=== PATIENT | male | born 1965 | race Caucasian/White ===

== ENCOUNTER 2018-02-27 21:15 | Emergency (ER) | payer OTHER ==
[~2018-02-27] VITALS: Ht 165.1 cm; Wt 108.2 kg
[~2018-02-27 21:15] MED LIST: ADVIL200 MG PO; MOTRIN600 MG PO; ZESTRIL10 MG PO
[2018-02-27 22:42] LABS: HEMATOCRIT 40.8 % (38.0-50.0); HEMOGLOBIN 14.5 G/DL (12.5-16.6); MCH 29.9 PG (29.0-34.0); MCHC 35.5 G/DL (30.0-36.0); MCV 84.1 FL (86-99); PLATELET COUNT 220 K/uL (156-360); RBC DIS.WIDTH-CV 12.5 % (11.8-14.6); RED BLOOD COUNT 4.85 M/uL (4.00-5.50); WHITE BLOOD COUNT 6.9 K/uL (4.1-10.2)
[2018-02-27 22:53] LABS: CHLORIDE 108 mEq/L (99-109); POTASSIUM 4.1 mEq/L (3.7-5.4); SODIUM 142 mEq/L (136-147)
[2018-02-27 22:55] LABS: GLUCOSE 96 mg/dL (70-99); TOTAL PROTEIN 7.1 g/dL (6.4-8.3)
[2018-02-27 22:57] LABS: TOTAL BILIRUBIN 0.2 mg/dL (0.0-1.0)
[2018-02-27 22:59] LABS: ALKALINE PHOSPHATASE 75 IU/L (3-129); GFR ESTIMATE (CALCULATED) > 59 mL/min/ (58.99-99999)
[2018-02-27 23:00] LABS: UREA NITROGEN (BUN) 16 mg/dL (9-23)
[2018-02-27 23:01] LABS: AST (GOT) 20 IU/L (2-34)
[2018-02-27 23:02] LABS: ALT (GPT) 33 IU/L (3-49); LIPASE 42 U/L (1.0-51.0)
[2018-02-27 23:05] LABS: TROP-I INTERPRETATION NEGATIVE; TROPONIN-I < 0.01 ng/mL (0.0-0.30)
[2018-02-28 00:30] VITALS: BP 128/87
[2018-02-28 01:01] LABS: TROP-I INTERPRETATION NEGATIVE; TROPONIN-I < 0.01 ng/mL (0.0-0.30)
== END 2018-02-28 01:06 | disposition home or self-care (01) ==
LOC: EME 21:15
PROVIDERS: Emergency Medicine
DX: R07.9 Chest pain, unspecified (principal); R94.31 Abnormal electrocardiogram [ECG] [EKG]; I10 Essential (primary) hypertension; E78.5 Hyperlipidemia, unspecified; G43.909 Migraine, unspecified, not intractable, without status migrainosus; Z82.49 Family history of ischemic heart disease and other diseases of the circulatory system
CPT/HCPCS: 71046; 80053; 83690; 84484; 85027; 93005; 99281; 99285

== ENCOUNTER 2018-05-08 13:47 | Emergency (ER) | payer OTHER ==
[~2018-05-08] VITALS: Ht 175.3 cm; Wt 106.9 kg
[2018-05-08 15:30] LABS: APPEARANCE CLEAR ((CLEAR)); BILIRUBIN NEGATIVE; BLOOD NEGATIVE; COLOR YELLOW ((YELLOW)); GLUCOSE (STRIP) NEGATIVE; KETONES NEGATIVE; LEUKOCYTES NEGATIVE; NITRITE NEGATIVE; PROTEIN (STRIP) NEGATIVE; SPECIFIC GRAVITY 1.031 (1.000-1.030); UCUL ADDED? NO; UROBILINOGEN 0.2 MG/DL (0.2-1.0)
[2018-05-08] MEDS ORDERED: FLEXERIL10 MG PO (15:36)
[2018-05-08] MEDS ORDERED: MOTRIN600 MG PO (15:36)
[2018-05-08 16:10] VITALS: BP 130/87
[2018-05-08] MEDS ORDERED: LISINOPRIL20 MG PO (16:12)
[2018-05-08] MEDS ORDERED: LO-DOSE ASPIRIN81 M1 PO (16:13)
[2018-05-08] MEDS ORDERED: ATORVASTATIN CA20 MG PO (16:14)
[2018-05-08] MEDS ORDERED: OMEPRAZOLE20 MG PO (16:15)
== END 2018-05-08 16:16 | disposition home or self-care (01) ==
LOC: EME 13:47
PROVIDERS: Emergency Medicine
DX: S06.0X1A Concussion with loss of consciousness of 30 minutes or less, initial encounter (principal); S16.1XXA Strain of muscle, fascia and tendon at neck level, initial encounter; S39.012A Strain of muscle, fascia and tendon of lower back, initial encounter; V86.59XA Driver of other special all-terrain or other off-road motor vehicle injured in nontraffic accident, initial encounter; E78.5 Hyperlipidemia, unspecified
CPT/HCPCS: 70450; 72070; 72100; 72125; 81003